=== PATIENT | male | born 1970 | race Two or more races ===

== ENCOUNTER 2025-05-26 06:32 | Inpatient (IN) | payer OTHER ==
[2025-05-26] VITALS (46 sets, daily range): BP systolic 106–184; BP diastolic 60–110; PULSE 68–104; RESP 7–22; TEMP 97.4–98.8; O2SAT 90–100
[~2025-05-26] VITALS: Ht 167.6 cm; Wt 102.4 kg
--- NOTE | 2025-05-26 06:40 | ED.PDOC ---
HPI Comments 54-year-old male presents here with chest discomfort. He states he woke up from his sleep 1/2 hour ago with chest discomfort reports it is pressure-like with no radiation. States he has had nausea and vomiting. He states earlier in the week he did have some chest pain with walking but it resolved. No history of similar type of pain in the past. Patient is not a diabetic does not smoke does not take any medications for anything. States he has not been sick no recent co ugh cold runny nose fever or chills. Patient is not on blood thinners. History limited due to concern for immediate deterioration. Time Seen by MD: 06:40 Reviewed Notes: Nurses Notes, Medications, Allergies Allergies: Coded Allergies: NO KNOWN ALLERGIES (Unverified , 05/26/25) Information Source: Patient Mode of Arrival: Ambulatory Severity: Moderate Timing: Hours Duration: Since onset Prehospital treatment: None Past Medical History PAST MEDICAL HISTORY: Denies Surgical History: Denies all surgeries Family History Family History: Unknown Social History Smoker: Non-Smoker Alcohol: Denies ETOH Use Drugs: Denies Drug Use Lives In: Home Constitutional: denies: chills, diaphoresis, fatigue, fever, malaise, sweats, weakness, others EENTM: denies: blurred vision, double vision, ear bleeding, ear discharge, ear drainage, ear pain, ear ringing, eye pain, eye redness, hearing loss, mouth pain, mouth swelling, nasal discharge, nose bleeding, nose congestion, nose pain, photophobia, tearing, throat pain, throat swelling, voice changes, others Respiratory: denies: cough, hemoptysis, orthopnea, SOB at rest, shortness of breath, SOB with excertion, stridor, wheezing, others Cardiovascular: reports: chest pain; denies: dizzy spells, diaphoresis, Dyspnea on exertion, edema, irregular heart beat, left arm pain, lightheadedness, palpitations, PND, syncope, others Gastrointestinal: denies: abdomen distended, abdominal pain, blood streaked bowels, constipated, diarrhea, dysphagia, difficulty swallowing, hematemesis, melena, nausea, poor appetite, poor fluid intake, rectal bleeding, rectal pain, vomiting, others Genitourinary: denies: burning, dysuria, flank pain, frequency, hematuria, incontinence, penile discharge, penile sore, pain, testicle pain, testicle swelling, urgency, others Neurological: denies: dizziness, fainting, headache, left sided numbness, left sided weakness, numbness, paresthesia, pre-existing deficit, right sided numbness, right sided weakness, seizure, speech problems, tingling, tremors, weakness, others Musculoskeletal: denies: back pain, gout, joint pain, joint swelling, muscle pain, muscle stiffness, neck pain, others Integumetry: denies: bruises, change in color, change in hair/nails, dryness, laceration, lesions, lumps, rash, wounds, others Allergic/Immunocompromised: denies: Difficulty Healing, Frequent Infections, Hives, Itching, others Hematologic/Lymphatic: denies: anemia, blood clots, easy bleeding, easy bruising, swollen glands, others Endocrine: denies: excessive hunger, excessive sweating, excessive thirst, excessive urination, flushing, intolerance to cold, intolerance to heat, unexp lained weight gain, unexplained weight loss, others Psychiatric: denies: anxiety, bipolar disorder, depression, hopeless, panic disorder, schizophrenia, sleepless, suicidal, others All Other Systems: Reviewed and Negative Physical Exam Exam Comments Patient appears pale and diaphoretic General Appearance: Severe Distress HEENT: Normal ENT Inspection, Pharynx Normal, TMs Normal Neck: Full Range of Motion, Non-Tender, Normal, Normal Inspection Respiratory: Chest Non-Tender, Lungs Clear, No Accessory Muscle Use, No Respiratory Distress, Normal Breath Sounds Cardiovascular: No Edema, No JVD, No Murmur, No Gallop, Normal Peripheral Pulses, Regular Rate/Rhythm Breast Exam: Deferred Gastrointestinal: No Organomegaly, Non Tender, No Pulsatile Mass, Normal Bowel Sounds, Soft Genitalia: Deferred Pelvic: Deferred Rectal: Deferred Extremities: No calf tenderness, Normal capillary refill, Normal inspection, Normal range of motion, Non-tender, No pedal edema Musculoskeletal : Apperance: Normal Neurologic: Alert, No Motor Deficits, Normal Affect, Normal Mood, No Sensory Deficits Cerebellar Function: Normal Reflexes: Normal Skin: Diaphoresis, Dry, Pallor, Warm, Other Lymphatic: No Adenopathy EKG EKG : Comments Rate of [address] elevation in V2 V3 with inverted T-waves in 2 3 AVF. STEMI Was a procedure done? Was a procedure done?: No CP Differential Dx Differential Diagnosis: N/A Differential Diagnosis: N/A Differential Diagnosis: Angina, Aortic dissection, Chest Wall Pain, Cholelithiasis, Costochondritis, Esophageal reflux/spasm, Myocardial Infarction, Pericarditis, Pneumonia, Pneumothorax, Pulmonary Embolus X-Ray, Labs, Meds, VS Vital Signs Date Time Temp Pulse Resp B/P (MAP) Pulse Ox O2 Delivery O2 Flow Rate FiO2 05/26/25 07:00 92 20 132/88 (103) 100 05/26/25 06:50 92 20 100 Room Air* 3 N/A Nasal Cannula* 05/26/25 06:39 86 05/26/25 06:35 97.6 85 20 108/83 98 97.6 Lab Test 05/26/25 06:48 Range/Units White Blood Count 12.0 H 4.4-10.8 10^3/uL Red Blood Count 5.03 4.5-5.90 10^6/uL Hemoglobin 15.2 13.5-17.5 g/dL Hematocrit 44.9 41.0-53.0 % Mean Corpuscular Volume 89.3 80.0-100.0 fL Mean Corpuscular Hemoglobin 30.2 28.0-32.0 pg Mean Corpuscular Hemoglobin Concent 33.8 32.0-36.0 g/dL Red Cell Distribution Width 14.5 H 11.8-14.3 % Platelet Count 312 140-450 10^3/uL Mean Platelet Volume 8.9 6.9-10.8 fL Neutrophils (%) (Auto) 48.5 37.0-80.0 % Lymphocytes (%) (Auto) 36.6 10.0-50.0 % Monocytes (%) (Auto) 12.0 0.0-12.0 % Eosinophils (%) (Auto) 2.1 0.0-7.0 % Basophils (%) (Auto) 0.8 0.0-2.0 % Neutrophils # (Auto) 5.8 1.6-8.6 10 ^3/uL Lymphocytes # (Auto) 4.4 0.4-5.4 10 ^3/uL Monocytes # (Auto) 1.4 H 0-1.3 10 ^3/uL Eosinophils # (Auto) 0.2 0-0.8 10 ^3/uL Basophils # (Auto) 0.1 0-0.2 10 ^3/uL Nucleated Red Blood Cells 0.0 % Prothrombin Time 11.5 9.3-11.8 sec Prothrombin Time INR 1.09 0.9-1.15 Activated Partial Thromboplast Time 27.8 24.5-34.5 SEC Sodium Level 140 136-145 mmol/L Potassium Level 3.7 3.5-5.1 mmol/L Chloride Level 105 98-107 mmol/L Carbon Dioxide Level 25 20-31 mmol/L Anion Gap 10 5-15 Blood Urea Nitrogen 20 9-23 mg/dL Creatinine 1.09 0.700-1.30 mg/dL Glomerular Filtration Rate Calc 80 >90 mL/min BUN/Creatinine Ratio 18.3 10.0-20.0 Serum Glucose 145 H 74-106 mg/dL Hemoglobin A1c Pending Calcium Level 9.5 8.7-10.4 mg/dL Magnesium Level 2.1 1.6-2.6 mg/dL Total Bilirubin 0.2 0.2-1.0 mg/dL Aspartate Amino Transferase (AST) 23 13-40 U/L Alanine Aminotransferase (ALT) 29 7-40 U/L Alkaline Phosphatase 74 46-116 U/L Troponin I High Sensitivity 8 </=54 ng/L Total Protein 7.1 5.7-8.2 g/dL Albumin 4.5 3.2-4.8 g/dL Current Medications Medications (Trade) Dose Ordered Sig/Nilson Route Start Time Stop Time Status Last Admin Aspirin 325 mg ONCE ONCE PO 05/26/25 06:45 05/26/25 06:53 DC 05/26/25 07:12 Heparin Sodium (Porcine) 3,000 units ONCE ONCE IV 05/26/25 07:00 05/26/25 07:01 DC 05/26/25 07:02 Aspirin 324 mg ONCE ONCE PO 05/26/25 07:00 05/26/25 07:01 DC 05/26/25 07:[address] [address] Ph: [phone] DIAGNOSTIC IMAGING Diagnostic Imaging Report : [id number] Signed PATIENT: SHANTE YORKCCT: [id number] UNIT: [id number] : 1970 LOC: ER ROOM / BED: / AGE / SEX: 54 / M ADM STATUS: REG ER SERVICE 9 ORDERING PHYSICIAN: BRANT PFEIFFER MD PROCEDURE(s): CXRP - CHEST PORTABLE REASON: STEMI ORDER NUMBER(s): [id number], ACCESSION NUMBER(s): [id number] CHEST RADIOGRAPH Indication: STEMI Technique: Single frontal view of the chest was obtained COMPARISON: None FINDINGS: Lines and Tubes: None Lungs: Mild congestion Pleura: No effusion. No pneumothorax. Cardiomediastinal contours: Unremarkable Bones: Unremarkable IMPRESSION: Mild Increased interstital prominence. This may represent pulmonary vascular congestion and/or viral pneumonia. Clinical correlation advised. ATED BY: ELOY CHAMBERS MD DICTATED DATE/TIME: 05/26/25717 SIGNED BY: EOLY CHAMBERS MD SIGNED DATE/TIME: 05/26/25717 CC: 54-year-old male presents here with chest discomfort. EKG was immediately brought to me by health record technician. Concerning for STEMI. Motor Vehicle Operator Road Supervisor Dr. Figueroa was immediately contacted. I immediately saw the patient upon his arrival. Patient appeared pale diaphoretic and cold. EKG was sent to Dr. Baez who agreed with STEMI activation. He requested heparin 3000 IV bolus be given, aspirin morphine Zofran IV which we have done. I have ordered labs including CBC, CMP troponin, portable chest x-ray. I spoke to patient's Rubina and advised her of patient's critical condition. CBC CMP and 1st set troponin have returned unremarkable. Patient has been given heparin, morphine, Zofran and aspirin in the ER. Chest x-ray with prominent interstitial markings but otherwise unremarkable. Patient was given all treatment in the ER and taken immediately the labor standards director by Dr. Figueroa and the STEMI team. Time of 1ST Reevaluation: 07:10 Reevaluation 1ST: Unchanged Patient Education/Counseling: Diagnosis, Treatment Family Education/Counseling: No Family Present SEPSIS Sepsis Screen Physician Orders Electrocardigram (05/26/25 06:38) Troponin-I Hs (05/26/25 07:38) Electrocardigram (05/26/25 07:38) Chest Portable (05/26/25 06:50) Laundry Sorter (05/26/25 06:50) Blood Pressure (05/26/25 06:50) Pulse Oximetry (05/26/25 06:50) Heplock Iv (05/26/25 06:50) Heplock Iv (05/26/25 06:50) Oxygen Per Hour (05/26/25 06:50) * Cardiology Consult (05/26/25 07:10) Aspirin Tablet (05/27/25 10:00) Atorvastatin (Lipitor) (05/26/25 22:00) Echo 2d Mode Cardiac Dop (05/26/25 07:10) Lipid Panel (05/26/25 07:10) Hemoglobin A1c (05/26/25 07:10) Thyroid Stimulating Hormone (05/26/25 07:10) Vital Signs Date Time Temp Pulse Resp B/P (MAP) Pulse Ox O2 Delivery O2 Flow Rate FiO2 05/26/25 07:00 92 20 132/88 (103) 100 05/26/25 06:50 92 20 100 Room Air* 3 N/A Nasal Cannula* 05/26/25 06:39 86 05/26/25 06:35 97.6 85 20 108/83 98 97.6 Laboratory Tests Test 05/26/25 06:48 White Blood Count 12.0 10^3/uL (4.4-10.8) H Medications Medications Dose Ordered Sig/Nilson Route Start Time Stop Time Status Last Admin Dose Admin Aspirin 324 mg ONCE ONCE PO 05/26/25 07:00 05/26/25 07:01 DC 05/26/25 07:02 Aspirin 325 mg ONCE ONCE PO 05/26/25 06:45 05/26/25 06:53 DC 05/26/25 07:12 Heparin Sodium (Porcine) 3,000 units ONCE ONCE IV 05/26/25 07:00 05/26/25 07:01 DC 05/26/25 07:02 Departure 1 Departure Time of Disposition: 06:56 Impression: Primary Impression: STEMI (ST elevation myocardial infarction) Qualified Codes: I21.3 - ST elevation (STEMI) myocardial infarction of unspecified site Disposition: ADMITTED INPATIENT Condition: Critical Critical Care Note Critical Care Time?: Yes (35 min-critical care time only) Critical care comment: Time spent assessing the patient, reviewing EKG sending EKG. sending EKG to Dr. Figueroa, speaking to Dr. Figueroa, speaking to family, speaking to patient, multiple re-evaluations of the patient, speaking to nursing staff, concern for immediate deterioration of cardiac system Stability Stability form required: No Heart Score Heart Score: Heart Score Response (Comments) Value History Highly Suspicious [address]-Deviation 2 Age 45-64 1 Risk Factors 1 or 2 risk factors 1 Troponin Normal limit 0 Total 6 I personally scribed for BRANT PFEIFFER MD ([email or web address]) on 05/26/25 at 06:40. Electronically submitted by Marilyn Lam ([email or web address]). I personally scribed for BRANT PFEIFFER MD ([email or web address]) on 05/26/25 at 07:35. Electronically submitted by Marilyn Lam ([email or web address]). BRANT PFEIFFER MD May 26, 2025 06:40
[2025-05-26] MEDS ORDERED: MORPHINE SULFATE 4 MG/ML SYR/VIAL IV ONE (07:00)
[2025-05-26] MEDS ORDERED: ONDANSETRON HCL 4 MG/2 ML VIAL IV ONE (07:00)
[2025-05-26] MEDS: HEPARIN SODIUM (PORCINE) 5000 UNITS/ML 1ML VIAL IV ONE (07:02)
[2025-05-26] MEDS: HEPARIN SODIUM (PORCINE) 5000 UNITS/ML 1ML VIAL ONE (07:02)
[2025-05-26] MEDS ORDERED: MORPHINE SULFATE INJ 2 MG/ml SYRG IV PRN ×2 (07:15)
[2025-05-26] MEDS ORDERED: ONDANSETRON HCL 4 MG/2 ML VIAL IV PRN (07:15)
[2025-05-26] MEDS ORDERED: NITROGLYCERIN 0.4 MG SL TAB SL PRN (07:15)
[2025-05-26] MEDS ORDERED: HYDROcodone-ACET 5/325MG TAB PO PRN (07:15)
--- NOTE | 2025-05-26 07:16 | DVHHP2 ---
History of Present Illness Reason for Visit: Chest pain History of Present Illness The patient is a 54-year-old male with no past medical history, presenting to the emergency department accompanied by his with acute onset chest pain. The chest pain reportedly began two days ago, initially described as mild and transient, and attributed to what this spouse described as possible "panic attack". Symptoms resolved at that time. Last evening, the patient appeared well and ate dinner without issues. However, upon waking this morning, he experienced severe, crushing chest pain accompanied by shortness of breath, diaphoresis, and vomiting, which prompted immediate presentation to the emergency department. An initial 12 lead ECG in the ED showed ST elevation myocardial infarction. The STEMI team has been activated and is EN route for emergent intervention. Past Medical History Denies Past Surgical History Denies Family History Reviewed, non-contributory to the management of this case. Past Social History The patient lives at home, denies smoking, alcohol or illicit drugs abuse. Review of Systems Constitutional: Yes: Sweats; No: Fever, Chills, Weakness, Malaise, Other Eyes: No: Pain, Vision change, Conjunctivae inflammation, Eyelid inflammation, Other, Redness ENT: No: Ear pain, Ear discharge, Nose pain, Nose discharge, Nose congestion, Mouth pain, Mouth swelling, Throat pain, Throat swelling, Other Respiratory: Shortness of breath; No: Cough, Dry, SOB with excertion, Wheezing, Hemoptysis, Pleuritic Pain, Sputum, Wheezing, Other Cardiovascular: Chest Pain; No: Palpitations, Orthopnea, Paroxysmal Noc. Dyspnea, Edema, Lt Headedness, Other Gastrointestinal: Vomiting; No: Nausea, Abdominal Pain, Diarrhea, Constipation, Melena, Hematochezia, Other Genitourinary: No Dysuria, No Frequency, No Incontinence, No Hematuria, No Retention, No Other Musculoskeletal: No: other, neck pain, shoulder pain, arm pain, back pain, hand pain, leg pain, foot pain Skin: No: Rash, Lesions, Jaundice, Bruising, Other Neurological: No: Weakness, Numbness, Incoordination, Change in speech, Confusion, Seizures, Other Allergies: Coded Allergies: NO KNOWN ALLERGIES (Unverified , 05/26/25) Exam Vital Signs Vital Signs Date Time Temp Pulse Resp B/P (MAP) Pulse Ox O2 Delivery O2 Flow Rate FiO2 05/26/25 06:50 92 20 100 Room Air* 3 N/A Nasal Cannula* 05/26/25 06:35 97.6 108/83 97.6 General Appearance: Alert, Cooperative, moderate distress Respiratory: Clear to auscultation, Normal air movement Cardiovascular: Regular rate, Normal S1, Normal S2, No murmurs Abdominal: Normal bowel sounds, Soft, No tenderness Extremities: No clubbing, No cyanosis, No edema, Normal pulses Skin: No rashes, No breakdown, No significant lesion Neuro: Normal speech, Strength at 5/5 X4 ext Psych/Mental Status: Mental status NL Labs/Xrays Labs Test 05/26/25 06:48 Range/Units SEPSIS Sepsis Screen Date sepsis recognized/suspect: May 26, 2025 Time Sepsis recognized/suspect: 638 Recent Procedure: No On Antibiotic Therapy: No Respiratory Rate >20: No Heart Rate >90: No Temp<36 C (96.8 F) or >38.3 C: No SBP <90 or MAP <65 mmHG: No New Acute Mental Status Change: No Is the patient on CPAP, BIPAP,: No Physician Orders Complete Blood Count (05/26/25 06:38) Troponin-I Hs (05/26/25 06:38) Electrocardigram (05/26/25 06:38) Troponin-I Hs (05/26/25 07:38) Electrocardigram (05/26/25 07:38) Comprehensive Metabolic Panel (05/26/25 06:50) PTPTT (05/26/25 06:50) Magnesium (05/26/25 06:50) Chest Portable (05/26/25 06:50) Aix Administrator (05/26/25 06:50) Blood Pressure (05/26/25 06:50) Pulse Oximetry (05/26/25 06:50) Heplock Iv (05/26/25 06:50) Heplock Iv (05/26/25 06:50) Oxygen Per Hour (05/26/25 06:50) * Cardiology Consult (05/26/25 07:10) Aspirin Tablet (05/27/25 10:00) Atorvastatin (Lipitor) (05/26/25 22:00) Echo 2d Mode Cardiac Dop (05/26/25 07:10) Lipid Panel (05/26/25 07:10) Hemoglobin A1c (05/26/25 07:10) Thyroid Stimulating Hormone (05/26/25 07:10) Admit (05/26/25 07:13) Code Status (05/26/25 07:13) Hydrocodone-Acet 5/325mg Tab (Depue /32 (05/26/25 07:15) Ondansetron Hcl (Zofran) (05/26/25 07:15) Complete Blood Count (05/27/25 04:00) Comprehensive Metabolic Panel (05/27/25 04:00) Condition: Critical (05/26/25 07:13) Acetaminophen Tablet (Tylenol Tablet) (05/26/25 07:15) Morphine Sulfate Injection (05/26/25 07:15) Nitroglycerin Sublingual (Ntrostat Subli (05/26/25 07:15) Morphine Sulfate Injection (05/26/25 07:15) Stat Ekg For Chest Pain (05/26/25 07:13) Notify Md Of Changes From Base (05/26/25 07:13) Compound Machine Operator For 24 Hours (05/26/25 07:13) Emergency Dysrhythmia Protocol (05/26/25 07:13) Rhythm Strips Once Every Shift (05/26/25 07:13) Oxygen By Nasal Cannula (05/26/25 07:13) Vital Signs Date Time Temp Pulse Resp B/P (MAP) Pulse Ox O2 Delivery O2 Flow Rate FiO2 05/26/25 06:50 92 20 100 Room Air* 3 N/A Nasal Cannula* 05/26/25 06:39 86 05/26/25 06:35 97.6 85 20 108/83 98 97.6 Laboratory Tests Test 05/26/25 06:48 White Blood Count Pending Medications Medications Dose Ordered Sig/Nilson Route Start Time Stop Time Status Last Admin Dose Admin Aspirin 324 mg ONCE ONCE PO 05/26/25 07:00 05/26/25 07:01 DC 05/26/25 07:02 324 MG Aspirin 325 mg ONCE ONCE PO 05/26/25 06:45 05/26/25 06:53 DC 05/26/25 07:12 325 MG Heparin Sodium (Porcine) 3,000 units ONCE ONCE IV 05/26/25 07:00 05/26/25 07:01 DC 05/26/25 07:02 3,000 UNITS Assessment/Plan Assessment/Plan Acute STEMI Obesity Class 2 Plan discussed with: Patient, Spouse My Orders Orders - ESTEFANI DENIS Procedure Category Date Status Time * Cardiology Consult CONS 05/26/25 Transmitted 07:10 Aspirin Tablet PHA 05/27/25 Logged 10:00 Atorvastatin (Lipitor) PHA 05/26/25 Logged 22:00 Echo 2d Mode Cardiac US 05/26/25 Logged DOP 07:10 Lipid Panel LAB 05/26/25 Logged 07:10 Hemoglobin A1c LAB 05/26/25 Logged 07:10 Thyroid Stimulating LAB 05/26/25 Logged Hormone 07:10 Admit ADMIT 05/26/25 Verified 07:13 Code Status CODE 05/26/25 Verified 07:13 Hydrocodone-Acet PHA 05/26/25 Verified 5/325mg Tab (Depue 07:15 Ondansetron Hcl PHA 05/26/25 Verified (Zofran) 07:15 Complete Blood Count LAB 05/27/25 Verified 04:00 Comprehensive LAB 05/27/25 Verified Metabolic Panel 04:00 Condition: Critical [facility] 05/26/25 Verified 07:13 Acetaminophen Tablet PHA 05/26/25 Verified (Tylenol Tablet) 07:15 Morphine Sulfate PHA 05/26/25 Verified Injection 07:15 Nitroglycerin PHA 05/26/25 Verified Sublingual (Ntrostat 07:15 Morphine Sulfate PHA 05/26/25 Verified Injection 07:15 Stat Ekg For Chest [facility] 05/26/25 Verified Pain 07:13 Notify Md Of Changes [facility] 05/26/25 Verified From Base 07:13 Compound Machine Operator For [facility] 05/26/25 Verified 24 Hours 07:13 Emergency Dysrhythmia [facility] 05/26/25 Verified Protocol 07:13 Rhythm Strips Once [facility] 05/26/25 Verified Every Shift 07:13 Oxygen By Nasal RT 05/26/25 Verified Cannula 07:13 Date of Service: May 26, 2025 Billing Provider: ESTEFANI DENIS Common Visit Codes: [id number] INP/OBS CARE (HIGH) Consultation Codes: [id number] CONSULT <60MIN ESTEFANI DENIS May 26, 2025 07:16
[2025-05-26] MEDS: fentaNYL CITRATE 100 MCG/2 ML VL ONE (07:18)
[2025-05-26] MEDS: VERAPAMIL 2.5MG/ML INJ 2ML VIAL IV ONE (07:18)
[2025-05-26] MEDS: ANGIOMAX 250 MG VIAL IV ONE (07:18)
[2025-05-26] MEDS: MIDAZOLAM HCL 2MG/2ML 2ml VIAL (1mg/ml) ONE (07:18)
[2025-05-26] MEDS: SODIUM CHL 0.9% 50 ML ONE (07:18)
[2025-05-26] MEDS: LIDOCAINE 2%HCL (LOCAL ANESTH.) INJ 20ML MDV ONE (07:18)
--- NOTE | 2025-05-26 07:18 | DVHINCON2 ---
Date of service: May 26, 2025 History of Present Illness 54-year-old male presents here with chest discomfort. He states he woke up from his sleep 1/2 hour ago with chest discomfort reports it is pressure-like with no radiation. States he has had nausea and vomiting. He states earlier in the week he did have some chest pain with walking but it resolved. No history of similar type of pain in the past. Patient is not a diabetic does not smoke does not take any medications for anything. States he has not been sick no recent cough cold runny nose fever or chills. Patient is not on blood thinners. History limited due to concern for immediate deterioration. Time Seen by MD: 06:40 Reviewed Notes: Nurses Notes, Medications, Allergies Allergies: Coded Allergies: NO KNOWN ALLERGIES (Unverified , 05/26/25) Information Source: Patient Mode of Arrival: Ambulatory Severity: Moderate Timing: Hours Duration: Since onset Prehospital treatment: None Past Medical History reviewed Allergies: Coded Allergies: NO KNOWN ALLERGIES (Unverified , 05/26/25) Current Medications Current Medications Medications (Trade) Dose Ordered Sig/Nilson Route PRN Reason Start Time Stop Time Status Last Admin Aspirin 81 mg DAILY PO 05/27/25 10:00 UNV Atorvastatin Calcium (Lipitor) 80 mg HS PO 05/26/25 22:00 UNV Acetaminophen/ Hydrocodone Bitart ([place] 5/325MG Tab) 1 tab Q4HP PRN PO MODERATE PAIN (4-6 PAIN SCALE) 05/26/25 07:15 UNV Ondansetron HCl (Zofran) 4 mg Q4HP PRN IV NAUSEA / VOMITING 05/26/25 07:15 UNV Acetaminophen (Tylenol Tablet) 650 mg Q6HP PRN PO PAIN SCALE 1-3 OR TEMP>100.4 05/26/25 07:15 UNV Morphine Sulfate 2 mg Q4HPRN PRN IV SEVERE PAIN (7-10 PAIN SCALE) 05/26/25 07:15 UNV Nitroglycerin (Ntrostat Sublingual) 0.4 mg Q5MINP PRN SL FOR CHEST PAIN 05/26/25 07:15 UNV Morphine Sulfate 2 mg Q30M PRN IV FOR CHEST PAIN 05/26/25 07:15 UNV Review of Systems 10 pt ros otherwise negative Vital Signs Vital Signs Date Time Temp Pulse Resp B/P (MAP) Pulse Ox O2 Delivery O2 Flow Rate FiO2 05/26/25 07:00 92 20 132/88 (103) 100 05/26/25 06:50 Room Air* 3 N/A Nasal Cannula* 05/26/25 06:35 97.6 97.6 Physical Exam moderate distress morbidly obese s1 s2 rrr ctab soft nt/nd no edema Labs/Diagnostic Data Labs Test 05/26/25 06:48 Range/Units Assessment anterior wall stemi obesity HTN Plan/Recommendation discussed risks benefits alternatives pt wishes for immediate LHC for stemi pt is highest possible risk for cv complications given acuity of his presentation pt wishes to proceed asa, heparin given admit to ICU 90 mins critical care time spent >50% face to face time Plan discussed with: Patient, Other (rn) NANDO MENDES MD May 26, 2025 07:18
[2025-05-26] MEDS: IODIXANOL 320MG/ML 100ML BTL IV ONE ×2 (07:19→07:49)
[2025-05-26 07:20] LABS: Hematocrit 44.9 % (41.0-53.0); Hemoglobin 15.2 g/dL (13.5-17.5); Mean Corpuscular Hemoglobin 30.2 pg (28.0-32.0); Mean Corpuscular Volume 89.3 fL (80.0-100.0); Nucleated Red Blood Cells % 0.0 %
--- NOTE | 2025-05-26 07:21 | DVH ---
CHEST RADIOGRAPH Indication: STEMI Technique: Single frontal view of the chest was obtained COMPARISON: None FINDINGS: Lines and Tubes: None Lungs: Mild congestion Pleura: No effusion. No pneumothorax. Cardiomediastinal contours: Unremarkable Bones: Unremarkable IMPRESSION: Mild Increased interstital prominence. This may represent pulmonary vascular congestion and/or viral pneumonia. Clinical correlation advised.
[2025-05-26 07:31] LABS: INR 1.09 (0.9-1.15); Partial Thromboplastin Time 27.8 SEC (24.5-34.5); Prothrombin Time 11.5 sec (9.3-11.8)
[2025-05-26 07:36] LABS: Alanine Aminotransferase 29 U/L (7-40); Albumin 4.5 g/dL (3.2-4.8); Alkaline Phosphatase 74 U/L (46-116); Anion Gap 10 (5-15); BUN/Creatinine Ratio 18.3 (10.0-20.0); Blood Urea Nitrogen 20 mg/dL (9-23); Calcium 9.5 mg/dL (8.7-10.4); Carbon Dioxide 25 mmol/L (20-31); Chloride 105 mmol/L (98-107); Glucose 145 mg/dL (74-106); Magnesium 2.1 mg/dL (1.6-2.6); Potassium 3.7 mmol/L (3.5-5.1); Sodium 140 mmol/L (136-145); Total Protein 7.1 g/dL (5.7-8.2)
[2025-05-26 07:37] LABS: Bilirubin, Total 0.2 mg/dL (0.2-1.0)
[2025-05-26] MEDS: TICAGRELOR 90 MG TAB ONE (08:24)
[2025-05-26] MEDS: EPTIFIBATIDE INJ (2MG/ML) 10ML VIAL IV ONE (08:24)
[2025-05-26] MEDS: FUROSEMIDE 20 MG/2 ML VIAL ONE (08:29)
[2025-05-26] MEDS: METOPROLOL TARTRATE 1MG/1ML-5ML VIAL IV ONE (08:29)
[2025-05-26 08:55] LABS: Triglycerides 137 mg/dL (< 150)
[2025-05-26 08:57] LABS: Cholesterol 168 mg/dL (< 200); HDL Cholesterol 42 mg/dL (40-59)
--- NOTE | 2025-05-26 09:42 | DVHOP ---
DATE OF SURGERY: 05/26/2025 PREOPERATIVE DIAGNOSIS: Acute anterior wall ST-elevation myocardial infarction. POSTOPERATIVE DIAGNOSIS: Acute anterior wall ST-elevation myocardial infarction. PROCEDURES PERFORMED: * Selective coronary angiogram. * Conscious sedation administration and supervision less than 15 minutes, as well as 15-30 minutes fluoroscopy use and interpretation. * PTCA, single vessel. * PCI, single vessel. * Acute RI intervention. PROCEDURE IN DETAIL: The patient signed informed consent, understanding the risks, benefits, and alternatives of procedure. He wished to proceed at the highest possible risk for cardiovascular complications. He was [place] urgently [place] [facility] [place] [facility]. He was prepped in a sterile fashion. Conscious sedation was administered per labor expediter protocol. The patient was moderately unstable during the procedure, moving around a lot. He was severely ischemic with severe symptoms. I gave 1 mL of 2% lidocaine to his right wrist. With antegrade flow wall puncture, I cannulated the right radial artery and placed a 6-Bangladeshi Glidesheath Slender. Next, an intra-arterial spasmolytic was administered. At this point, I took a 5-Bangladeshi Deforest catheter, 6-Bangladeshi XB 3.5 guide, and a JR4 diagnostic catheter for coronary angiogram. FINDINGS: * RCA: Moderate vessel off the right sinus of Valsalva. It is patent in the proximal, mid, and distal portion. The distal RCA has mild 20-30% plaque. * Left main: Left main is a moderately large vessel off the left sinus of Valsalva. It is patent. It bifurcates into the LAD and circumflex. * Circumflex: Circumflex proximally is patent. It gives off a very large OM1 as well as a small OM2. The mid and distal circumflex are widely patent. The distal circumflex is patent with an OM3. * LAD: LAD proximally in the ostium has 30% stenosis. The proximal LAD is completely occluded with FACUNDO 0 flow adjacent to two very small diagonal artery that is heavily diseased. INTERVENTION: Over the XB 3.5 guide, Angiomax bolus and drip had been initiated. I brought an 0.014 x 190 cm BMW wire and I was able to cross into the distal LAD. I took a 2.5 x 12 mm balloon and performed balloon angioplasty with several inflations up to 12 atmospheres for 10 seconds each, restoring FACUNDO 3 flow at this point. After multiple plantar views, I decided to bring a 3.0 x 26 mm drug-eluting stent by [employer] [place]. This was placed in the proximal LAD and after multiple views for positioning, I deployed the stent at 18 atmospheres with two separate inflations, each lasting 15 seconds. Following this, the stent balloon was removed. Angiogram was performed showing 0% residual stenosis and excellent flow throughout the distal and apical LAD. The patient's chest pain had significantly improved from a 10/10 down to less than 5. He did have an episode of AIVR as well as PACs, 2.5 mg of IV metoprolol were given post procedure. The patient also had LVEDP measured at over 35 mmHg given the massive anterior wall STEMI. This was done with a JR4 catheter and IV Lasix 20 mg was given. At this point, all guides and wires were removed and a TR band was used for obtain hemostasis. There were no immediate complications. The patient was given one dose of intravenous Integrilin. The patient was also given Ticagrelor 180 mg p.o. x1 loading dose. CONCLUSION: * Successful PTCA and PCI of an acutely occluded proximal LAD massive anterior wall STEMI. * Cardiogenic shock with an LVEDP greater than 35 mmHg. * CAD. * Hypertension. * PACs. PLAN: * Admit to ICU/VIRA. * Dual antiplatelet therapy. * Check 2D echo. * IV Lasix 20 mg x1. Try to diurese the patient and unload the patient. * Initiate statin therapy. * When feasible, initiate SCOTTY inhibitor, spironolactone, and beta-calin. Quinten Figueroa MD CM/MARIFER TID: [id number] RECEIPT: [id number]
[2025-05-26] MEDS: ACETAMINOPHEN 325 MG TAB PO PRN (14:46)
[2025-05-26] MEDS: TICAGRELOR 90 MG TAB PO SCH (17:51)
[2025-05-26] MEDS: ATORVASTATIN 20 MG TAB PO SCH (21:16)
[2025-05-27] VITALS (18 sets, daily range): BP systolic 103–183; BP diastolic 67–101; PULSE 65–95; RESP 5–18; TEMP 97.7–99.5; O2SAT 95–100
[2025-05-27 06:17] LABS: Hematocrit 44.7 % (41.0-53.0); Hemoglobin 15.2 g/dL (13.5-17.5); Mean Corpuscular Hemoglobin 30.5 pg (28.0-32.0); Mean Corpuscular Volume 89.6 fL (80.0-100.0); Nucleated Red Blood Cells % 0.0 %
[2025-05-27 06:36] LABS: Alkaline Phosphatase 74 U/L (46-116); Anion Gap 9 (5-15); BUN/Creatinine Ratio 12.5 (10.0-20.0); Blood Urea Nitrogen 11 mg/dL (9-23); Calcium 8.9 mg/dL (8.7-10.4); Carbon Dioxide 25 mmol/L (20-31); Chloride 104 mmol/L (98-107); Magnesium 2.1 mg/dL (1.6-2.6); Potassium 3.9 mmol/L (3.5-5.1); Sodium 138 mmol/L (136-145); Total Protein 6.8 g/dL (5.7-8.2)
[2025-05-27 06:37] LABS: Albumin 4.0 g/dL (3.2-4.8)
[2025-05-27 06:38] LABS: Bilirubin, Total 0.5 mg/dL (0.2-1.0)
[2025-05-27 06:40] LABS: Alanine Aminotransferase 52 U/L (7-40); Glucose 124 mg/dL (74-106)
--- NOTE | 2025-05-27 07:42 | ECG ---
[facility] Test Date: 2025-05-26 Test Time: 06:39:54 Pat Name: ROSALINE YORK Department: ED Room: [address] [place] [address] Gender: M Preload Supervisor: EVIN : 1970 Requested By: BRANT PFEIFFER Order Number: [id number] Reading MD: Zack Perdomo Measurements Intervals Holt Rate: 86 P: 13 NV: 135 QRS: -36 QRSD: 95 T: -45 QT: 370 QTc: 443 Interpretive Statements Sinus rhythm Left axis deviation Low voltage, precordial leads Abnormal R-wave progression, early transition Borderline repolarization abnormality ST elevation, consider anterior injury Electronically Signed On 05-29-2025 18:37:22 PDT by Zack Perdomo Please click the below link to view image of tracing.
--- NOTE | 2025-05-27 08:14 | DVHSR ---
APPROVED REPORT EXAM: LIMITED Two-dimensional and M-mode echocardiogram with Doppler and color Doppler. Blood Pressure: 132/88 mmHg INDICATION Anterior wall Stemi RISK FACTORS Obesity: Height: 5' 7", Weight: 231 DIMENSIONS LVDd5.3 (3.8-5.7cm)LA (2D)3.7 (1.9-4.0cm)Aortic Root3.6 (2.0-3.7cm) LVDs4.2 (2.5-4.0cm)LA (MM) (1.9-4.0cm)Aortic Cusp Exc1.8 (1.5-2.0cm) EF (%) 45.0 (55-70%)Rt. Atrium4.0 (1.9-4.0cm)Asc. Aorta cm IVSd1.0 (0.7-1.1cm)RV (D) (1.8-2.4cm) PWd1.0 (0.7-1.1cm) Mitral Valve MitralMitral Stenosis E wave0.50m/sMV Mean GR.mmHg A wave0.60m/sMV Peak GR.mmHg E/A ratio0.82D MVAcm2 Aortic Valve Aortic ValveAortic Stenosis V10.90m/Brian Mean GR.3mmHg V21.20m/Brian Peak GR.6mmHg LVOT Diameter2.2 (1.8-2.4cm)Doppler AVA2.85cm2 Pulmonic Valve V20.70m/s Other Information Quality : Technically LimitedRhythm : Technically limited study due to body habitus. Conclusion lvef 40% hypokinetic apex RV enlarged low normal function normla atria no severe valve abnormalities noted
--- NOTE | 2025-05-27 10:59 | DVHPN2 ---
Subjective Doing well Status post heart catheterization yesterday No chest pain Vital signs are stable Changes from previous H/P or p: Changes Eyes: No Pain, No Vision change, No Conjunctivae inflammation, No Eyelid inflammation, No Other, No Redness ENT: No Ear pain, No Ear discharge, No Nose pain, No Nose discharge, No Nose congestion, No Mouth pain, No Mouth swelling, No Throat pain, No Throat swelling, No Other Cardiovascular: Chest Pain; No Palpitations, No Orthopnea, No Paroxysmal Noc. Dyspnea, No Edema, No Lt Headedness, No Other Respiratory: No Cough, No Dry; Shortness of breath; No SOB with excertion, No Wheezing, No Hemoptysis, No Pleuritic Pain, No Sputum, No Other Gastrointestinal: No Nausea; Vomiting; No Abdominal Pain, No Diarrhea, No Constipation, No Melena, No Hematochezia, No Other Genitourinary: No Dysuria, No Frequency, No Incontinence, No Hematuria, No Retention, No Other Musculoskeletal: No other, No neck pain, No shoulder pain, No arm pain, No back pain, No hand pain, No leg pain, No foot pain Skin: No Rash, No Lesions, No Jaundice, No Bruising, No Other Objective Vitals Vital Signs Date Time Temp Pulse Resp B/P (MAP) Pulse Ox O2 Delivery O2 Flow Rate FiO2 05/27/25 08:00 78 05/27/25 08:00 11 99 Room Air* 0 21 05/27/25 06:00 115/80 (92) 05/27/25 04:00 98.7 98.7 Intake/Output Intake and Output 05/27/25 07:00 Intake Total 740 ml Output Total 1600 ml Balance -860 ml Intake Oral 740 ml Output Urine Total 1600 ml General Appearance: Alert, Oriented X3, Cooperative, No acute distress Lungs: Clear to auscultation, Normal air movement Cardiovascular: Regular rate, Normal S1, Normal S2, No murmurs Abdomen: Normal bowel sounds, Soft, No tenderness Extremities: No edema Medications Current Medications Medications Dose Ordered Sig/Nilson Route Start Time Stop Time Status Last Admin Dose Admin Aspirin 81 mg DAILY PO 05/27/25 10:00 05/27/25 09:56 81 MG Atorvastatin Calcium 80 mg HS PO 05/26/25 22:00 05/26/25 21:16 80 MG Acetaminophen/ Hydrocodone Bitart 1 tab Q4HP PRN PO 05/26/25 07:15 Ondansetron HCl 4 mg Q4HP PRN IV 05/26/25 07:15 Acetaminophen 650 mg Q6HP PRN PO 05/26/25 07:15 05/27/25 09:57 650 MG Morphine Sulfate 2 mg Q4HPRN PRN IV 05/26/25 07:15 Nitroglycerin 0.4 mg Q5MINP PRN SL 05/26/25 07:15 Morphine Sulfate 2 mg Q30M PRN IV 05/26/25 07:15 Ticagrelor 90 mg BID PO 05/26/25 17:00 05/27/25 09:56 90 MG Laboratory Results Laboratory Tests 05/27/25 04:57 Chemistry Test 05/27/25 04:57 Albumin 4.0 g/dL (3.2-4.8) Calcium Level 8.9 mg/dL (8.7-10.4) Magnesium Level 2.1 mg/dL (1.6-2.6) Total Protein 6.8 g/dL (5.7-8.2) LFT Test 05/27/25 04:57 Alanine Aminotransferase (ALT) 52 U/L (7-40) H Alkaline Phosphatase 74 U/L (46-116) Aspartate Amino Transferase (AST) 236 U/L (13-40) H Total Bilirubin 0.5 mg/dL (0.2-1.0) HgA1c, TSH Test 05/27/25 04:57 Thyroid Stimulating Hormone (TSH) 0.95 uIU/mL (0.55-4.78) Assessment/Plan Assessment/Plan Acute myocardial infarction NSTEMI Coronary artery disease status post successful PTCA and PCI of occluded proximal LAD with massive anterior wall TN Hypertension PACs Mixed hyperlipidemia Obesity Plan Admit to telemetry Aspirin Brilinta Lipitor Out of bed as tolerated Monitor closely Full code Advance directives discussed for 22 minutes Discussed with the at the bedside Not stable for transfer Plan discussed with: Patient, Spouse Date of Service: May 27, 2025 Billing Provider: KAPIL RODRIGUEZ MD Common Visit Codes: [id number] INP/OBS CARE(HIGH) Secondary Visit Codes: [id number] CARE PLAN 30 MINUTES KAPIL RODRIGUEZ MD May 27, 2025 10:59
--- NOTE | 2025-05-27 11:32 | DVHPN2 ---
Progress Note Date Seen: May 27, 2025 Medical Necessity Reason Pt with a Central, PICC or Fol: No Subjective Patient reports: Feels better Objective vital signs Vital Sign Date Time Temp Pulse Resp B/P (MAP) Pulse Ox O2 Delivery O2 Flow Rate FiO2 05/27/25 08:00 78 05/27/25 08:00 11 99 Room Air* 0 21 05/27/25 06:00 115/80 (92) 05/27/25 04:00 98.7 98.7 Total Intake and Output 05/26/25 05/26/25 05/27/25 15:00 23:00 07:00 Intake Total 500 ml 240 ml Output Total 900 ml 700 ml Balance -400 ml -460 ml medications Current Medications Medications Dose Ordered Sig/Nilson Route Start Time Stop Time Status Last Admin Dose Admin Aspirin 81 mg DAILY PO 05/27/25 10:00 05/27/25 09:56 81 MG Atorvastatin Calcium 80 mg HS PO 05/26/25 22:00 05/26/25 21:16 80 MG Acetaminophen/ Hydrocodone Bitart 1 tab Q4HP PRN PO 05/26/25 07:15 Ondansetron HCl 4 mg Q4HP PRN IV 05/26/25 07:15 Acetaminophen 650 mg Q6HP PRN PO 05/26/25 07:15 05/27/25 09:57 650 MG Morphine Sulfate 2 mg Q4HPRN PRN IV 05/26/25 07:15 Nitroglycerin 0.4 mg Q5MINP PRN SL 05/26/25 07:15 Morphine Sulfate 2 mg Q30M PRN IV 05/26/25 07:15 Ticagrelor 90 mg BID PO 05/26/25 17:00 05/27/25 09:56 90 MG Examination: GENERAL:Abnormal, HEENT:Abnormal, LUNGS:Abnormal, CVS:Abnormal, ABDOMEN:Abnormal laboratory and microbiology Laboratory Tests 05/27/25 04:57 Test 05/27/25 04:57 Range/Units Serum Glucose 124 H 74-106 mg/dL Problem List/Assessment/Plan Problem List/Assessment/Plan stemi cad htn hl obesity moderate LV dysfunction nyha class III HF new onset systolic and diastolic HF ckd po lasix start arb, bb, aldactone dapt statin benadryl cont for tele monitoring given extent of stemi pt agrees to plan RN with me Plan discussed with: Patient, Spouse My Orders My Orders Orders - MENDES,NANDO P MD Procedure Category Date Status Time * Hand [employer]ed [employer]er CONS 05/26/25 Transmitted Consult 11:16 Mrsa Screen LEE 05/26/25 In Process 11:16 Date of Service: May 27, 2025 Billing Provider: NANDO MENDES MD Common Visit Codes: NOT BILLABLE NANDO MENDES MD May 27, 2025 11:31
[2025-05-27] MEDS: LOSARTAN POTASSIUM 25 MG TAB PO SCH (12:17)
[2025-05-27] MEDS: SPIRONOLACTONE 25 MG TAB PO SCH (12:17)
[2025-05-27] MEDS: FUROSEMIDE 20 MG TAB PO ONE (12:18)
[2025-05-27] MEDS: METOPROLOL SUCCINATE XL 50 MG TAB PO SCH (12:19)
[2025-05-28] VITALS (9 sets, daily range): BP systolic 117–126; BP diastolic 69–83; PULSE 58–73; RESP 12–17; TEMP 37; O2SAT 94–97
[2025-05-28 06:15] LABS: Hematocrit 46.9 % (41.0-53.0); Hemoglobin 15.9 g/dL (13.5-17.5); Mean Corpuscular Hemoglobin 30.5 pg (28.0-32.0); Mean Corpuscular Volume 90.0 fL (80.0-100.0); Nucleated Red Blood Cells % 0.0 %
[2025-05-28 06:31] LABS: Albumin 4.4 g/dL (3.2-4.8); Alkaline Phosphatase 75 U/L (46-116); Anion Gap 7 (5-15); BUN/Creatinine Ratio 11.7 (10.0-20.0); Blood Urea Nitrogen 13 mg/dL (9-23); Calcium 9.7 mg/dL (8.7-10.4); Carbon Dioxide 31 mmol/L (20-31); Chloride 102 mmol/L (98-107); Potassium 4.1 mmol/L (3.5-5.1); Sodium 140 mmol/L (136-145); Total Protein 7.0 g/dL (5.7-8.2)
[2025-05-28 06:32] LABS: Bilirubin, Total 0.7 mg/dL (0.2-1.0)
[2025-05-28 06:34] LABS: Alanine Aminotransferase 46 U/L (7-40); Glucose 108 mg/dL (74-106)
[2025-05-28] MEDS ORDERED: SPIR25TA PO (10:50)
[2025-05-28] MEDS ORDERED: METO25TA36 PO (10:50)
[2025-05-28] MEDS ORDERED: ATOR80TA PO (10:50)
[2025-05-28] MEDS ORDERED: ASPI-325 PO (10:50)
[2025-05-28] MEDS ORDERED: LOS25T PO (10:50)
[2025-05-28] MEDS ORDERED: TICA90TA PO (10:50)
--- NOTE | 2025-05-28 10:56 | DVHDS2 ---
Discharge Summary Date of Admission May 26, 2025 at 07:13 Date of Discharge: May 28, 2025 Labs/Diagnostic Data: Laboratory Results Test 05/28/25 05:30 05/27/25 04:57 05/26/25 08:36 05/26/25 06:48 White Blood Count 11.4 10^3/uL (4.4-10.8) Red Blood Count 5.21 10^6/uL (4.5-5.90) Hemoglobin 15.9 g/dL (13.5-17.5) Hematocrit 46.9 % (41.0-53.0) Mean Corpuscular Volume 90.0 fL (80.0-100.0) Mean Corpuscular Hemoglobin 30.5 pg (28.0-32.0) Mean Corpuscular Hemoglobin Concent 33.9 g/dL (32.0-36.0) Red Cell Distribution Width 14.3 % (11.8-14.3) Platelet Count 286 10^3/uL (140-450) Mean Platelet Volume 8.7 fL (6.9-10.8) Neutrophils (%) (Auto) 60.3 % (37.0-80.0) Lymphocytes (%) (Auto) 24.9 % (10.0-50.0) Monocytes (%) (Auto) 12.0 % (0.0-12.0) Eosinophils (%) (Auto) 2.4 % (0.0-7.0) Basophils (%) (Auto) 0.4 % (0.0-2.0) Neutrophils # (Auto) 6.9 10 ^3/uL (1.6-8.6) Lymphocytes # (Auto) 2.8 10 ^3/uL (0.4-5.4) Monocytes # (Auto) 1.4 10 ^3/uL (0-1.3) Eosinophils # (Auto) 0.3 10 ^3/uL (0-0.8) Basophils # (Auto) 0 10 ^3/uL (0-0.2) Nucleated Red Blood Cells 0.0 % Sodium Level 140 mmol/L (136-145) Potassium Level 4.1 mmol/L (3.5-5.1) Chloride Level 102 mmol/L (98-107) Carbon Dioxide Level 31 mmol/L (20-31) Anion Gap 7 (5-15) Blood Urea Nitrogen 13 mg/dL (9-23) Creatinine 1.11 mg/dL (0.700-1.30) Glomerular Filtration Rate Calc 78 mL/min (>90) BUN/Creatinine Ratio 11.7 (10.0-20.0) Serum Glucose 108 mg/dL (74-106) Calcium Level 9.7 mg/dL (8.7-10.4) Total Bilirubin 0.7 mg/dL (0.2-1.0) Aspartate Amino Transferase (AST) 107 U/L (13-40) Alanine Aminotransferase (ALT) 46 U/L (7-40) Alkaline Phosphatase 75 U/L (46-116) Total Protein 7.0 g/dL (5.7-8.2) Albumin 4.4 g/dL (3.2-4.8) Magnesium Level 2.1 mg/dL (1.6-2.6) Thyroid Stimulating Hormone (TSH) 0.95 uIU/mL (0.55-4.78) Troponin I High Sensitivity 88795 ng/L (</=54) Prothrombin Time 11.5 sec (9.3-11.8) Prothrombin Time INR 1.09 (0.9-1.15) Activated Partial Thromboplast Time 27.8 SEC (24.5-34.5) Hemoglobin A1c 5.5 % A1C (<5.7) Triglycerides Level 137 mg/dL (< 150) Cholesterol Level 168 mg/dL (< 200) LDL Cholesterol 112 mg/dL (< 100) HDL Cholesterol 42 mg/dL (40-59) Other Laboratory Tests 05/28/25 05:30 Brief Hx & Hospital Course: Discharge diagnoses: Acute myocardial infarction STEMI Coronary artery disease status post successful PTCA and PCI of occluded proximal LAD with massive anterior wall [place] Hypertension PACs Mixed hyperlipidemia Obesity Moderate LV dysfunction nyha class III HF New onset acute systolic and diastolic HF Hospital course: 54-year-old male who was admitted for STEMI and underwent emergency cardiac catheterization which showed stenosis of the LAD requiring stenting and PTCA and PCI He was observed overnight on aspirin and Brilinta and Lipitor He was also added losartan and Aldactone and metoprolol He is doing well now asymptomatic Discharged home on: Aspirin Brilinta Metoprolol Losartan Aldactone Lipitor Condition at Discharge: Stable Final Diagnosis/Problems List Acute myocardial infarction STEMI Coronary artery disease status post successful PTCA and PCI of occluded proximal LAD with massive anterior wall [place] Hypertension PACs Mixed hyperlipidemia Obesity Moderate LV dysfunction nyha class III HF New onset acute systolic and diastolic HF Discharge Disposition: Home SNF Discharge Will this Physician continue t: No Discharge Instruct/Medications Scheduled Aspirin (Aspirin Low Dose), 81 MG PO DAILY Atorvastatin Calcium (Lipitor), 1 TAB PO DAILY Losartan Potassium (Losartan Potassium), 25 MG PO DAILY Metoprolol Succinate (Toprol Xl), 1 TAB PO DAILY Spironolactone (Aldactone), 25 MG PO DAILY Ticagrelor Base (Brilinta), 90 MG PO BID Discharge Statement: "Patient was advised to return to the ER or call 911 if any headaches, dizziness, shortness of breath, chest pain, abdominal pain, bleeding, fevers, or worsening of medical condition. Patient was counseled about treatment plan, medications, possible side effects, patientverbalized understanding. All questions were answered to the best of my ability. This discharge took greater then 30 minutes in planning, reviewing documentation, counseling the patient, and discussing with other team members." ASSESSMENT ASSESSMENT Assessment Date of Service: May 28, 2025 Billing Provider: KAPIL RODRIGUEZ MD Common Visit Codes: [id number]/OBS DISCH DAY >30min KAPIL RODRIGUEZ MD May 28, 2025 10:56
== END 2025-05-28 12:47 | disposition home or self-care (01) | DRG 321 ==
LOC: ER 06:37 → OVERFLOW 07:13 → ICU CENTRL 09:18 → DOU 05-27 05:30
PROVIDERS: ADMIT Internal Medicine Geriatric Medicine; ATTEND Internal Medicine Geriatric Medicine
PROC: 027034Z Dilation of Coronary Artery, One Artery with Drug-eluting Intraluminal Device, Percutaneous Approach (ICD-10-PCS; principal; 2025-05-26)
PROC: 4A023N7 Measurement of Cardiac Sampling and Pressure, Left Heart, Percutaneous Approach (ICD-10-PCS; 2025-05-26)
PROC: B211YZZ Fluoroscopy of Multiple Coronary Arteries using Other Contrast (ICD-10-PCS; 2025-05-26)
DX: I21.09 ST elevation (STEMI) myocardial infarction involving other coronary artery of anterior wall (principal); I50.41 Acute combined systolic (congestive) and diastolic (congestive) heart failure; R57.0 Cardiogenic shock; I13.0 Hypertensive heart and chronic kidney disease with heart failure and stage 1 through stage 4 chronic kidney disease, or unspecified chronic kidney disease; E66.812 Obesity, class 2; I25.10 Atherosclerotic heart disease of native coronary artery without angina pectoris; I49.8 Other specified cardiac arrhythmias; E78.2 Mixed hyperlipidemia; N18.9 Chronic kidney disease, unspecified; Z68.37 Body mass index [BMI] 37.0-37.9, adult; Z79.899 Other long term (current) drug therapy
CPT/HCPCS: 36415; 71045; 80053; 80061; 83036; 83735; 84443; 84484; 85025; 85610; 85730; 87081; 92941; 93005; 93306; 93458; 96374; 96375; 99152; 99291; G0378; J2250; J2405; Q9967